=== PATIENT | female | born 1945 ===

== ENCOUNTER 2021-02-25 06:11 | Day surgery (SDC) | payer OTHER ==
[~2021-02-25 06:11] MED LIST: CARDURA PO; CHILDREN'S ASPI81 MG PO; COZAAR100 MG PO; CRESTOR5 MG PO; DAILY MULTIVIT1 EAC4; FORTAMET500 MG PO; LASIX20 MG; PLAVIX75 MG PO; PROCARDIA PO; TOPROL XL50 M1 PO; [UNRECOGNIZED DRUG - OTHER] PO
[2021-02-25] MEDS ORDERED: ULTRACET PO (10:38)
[2021-02-25] MEDS ORDERED: MACROBID 100 M100 MG PO (10:38)
== END 2021-02-25 12:15 | disposition home or self-care (01) ==
LOC: CIR.AMB 06:11
PROVIDERS: ATTEND Obstetrics & Gynecology Gynecology
DX: N81.5 Vaginal enterocele (principal); N81.6 Rectocele; Z20.822 Contact with and (suspected) exposure to COVID-19